=== PATIENT | male | born 1950 | race Caucasian/White ===

== ENCOUNTER 2021-02-13 21:26 | Emergency (ER) | payer MEDICARE ==
[~2021-02-13 21:26] MED LIST: ACETAMINOPHEN325 MG PO; ASPIRIN EC81 MG PO; DULCOLAX10 MG PR; LEVOFLOXAC750 MG/150 IV; LIDOCAINE 5% P1 EACH TOP; LIPITOR20 MG PO; MELATONIN5 M2 PO; MIRALAX17 GM PO; MORPHINE 110 MG/0.5 PO; PAXIL10 MG PO; PROTONIX40 MG PO; SENNA PLUS 8.61 EACH PO; SEROQUEL 25MG T25 MG PO; SPIRIVA RESPIMAT4 G1 PO; TYLENOL650 MG PR; VENTOLIN (2.5 MG/3 M INH; ZYVOX RTU600 MG/300 IV
[2021-02-13 22:21] LABS: BASOPHIL 0.2 % (0-2); EOSINOPHIL 0.1 % (0-7); HCT 32.1 % (42.0-52.0); HGB 10.6 g/dl (13.2-18.0); MCH 30.8 pg (25.0-31.0); MONOCYTE 11.7 % (0-12); MPV 9.9 fL (6.0-9.5); NEUTROPHIL 80.4 % (41-80); NRBC 0; PLT 288 K/uL (150-400); RBC 3.44 M/uL (4.70-6.00); RDW 13.1 % (11.5-14.0); WBC 11.1 K/uL (4.0-10.5)
[2021-02-13 22:22] LABS: MCV 93.3 fL (78.0-100.0)
[2021-02-13 22:32] LABS: ALBUMIN 2.9 g/dL (3.4-5.0); BILIRUBIN - TOTAL 0.5 mg/dL (0.2-1.0); BUN/CREAT RATIO (CALC) 24.1 RATIO; CREATININE 0.87 mg/dL (0.67-1.17); GLOBULIN (CALCULATION) 3.2 g/dL; POTASSIUM 3.8 mmol/L (3.5-5.1); TOTAL PROTEIN 6.1 g/dL (6.4-8.2)
== END 2021-02-13 23:50 | disposition home or self-care (01) ==
LOC: FER 21:26
PROVIDERS: Emergency Medicine
DX: S01.81XA Laceration without foreign body of other part of head, initial encounter (principal); F03.90 Unspecified dementia, unspecified severity, without behavioral disturbance, psychotic disturbance, mood disturbance, and anxiety; I69.991 Dysphagia following unspecified cerebrovascular disease; R13.10 Dysphagia, unspecified; Z23 Encounter for immunization; W19.XXXA Unspecified fall, initial encounter; Y92.128 Other place in nursing home as the place of occurrence of the external cause
CPT/HCPCS: 36415; 70450; 71045; 72125; 80053; 85025; 90471; 90715

== ENCOUNTER 2021-02-28 15:00 | Emergency (ER) | payer MEDICARE ==
[2021-02-28 17:46] LABS: BASOPHIL 0.9 % (0-2); BILIRUBIN NEGATIVE (NEGATIVE); BLOOD NEGATIVE Ery/uL (NEGATIVE); CLARITY CLEAR (CLEAR); COLOR YELLOW (YELLOW); EOSINOPHIL 0.2 % (0-7); GLUCOSE (U) NORMAL (NORMAL); HCT 38.5 % (42.0-52.0); HGB 12.1 g/dl (13.2-18.0); LEUKOCYTES NEGATIVE Leu/uL (NEGATIVE); LYMPHOCYTE 5.2 % (15-48); MCH 30.6 pg (25.0-31.0); MCHC 31.4 g/dL (32.0-36.0); MCV 97.2 fL (78.0-100.0); MONOCYTE 3.6 % (0-12); MPV 10.7 fL (6.0-9.5); NITRITE POSITIVE (NEGATIVE); NRBC 0; PLT 396 K/uL (150-400); PROTEIN 1+ mg/dL (NEGATIVE); RBC 3.96 M/uL (4.70-6.00); RDW 13.9 % (11.5-14.0); SPECIFIC GRAVITY >=1.030 (1.001-1.030); WBC 4.5 K/uL (4.0-10.5); pH 5.5 (5.0-9.0)
[2021-02-28 17:48] LABS: NEUTROPHIL 89.7 % (41-80)
[2021-02-28 17:52] LABS: BACTERIA 3+
[2021-02-28 18:03] LABS: PRO-BNP 444 pg/mL (<125)
[2021-02-28 18:05] LABS: ALBUMIN 3.1 g/dL (3.4-5.0); BILIRUBIN - TOTAL 0.5 mg/dL (0.2-1.0); GLOBULIN (CALCULATION) 4.2 g/dL; POTASSIUM 4.7 mmol/L (3.5-5.1); TOTAL PROTEIN 7.3 g/dL (6.4-8.2)
[2021-02-28 18:12] LABS: LACTIC ACID 4.4 mmol/L (0.4-1.9)
[2021-03-01 02:37] LABS: BASOPHIL 0.5 % (0-2); EOSINOPHIL 0 % (0-7); HCT 31.7 % (42.0-52.0); LYMPHOCYTE 1.5 % (15-48); MCH 30.6 pg (25.0-31.0); MCHC 31.5 g/dL (32.0-36.0); MCV 96.9 fL (78.0-100.0); MONOCYTE 2.6 % (0-12); MPV 9.7 fL (6.0-9.5); NRBC 0; PLT 268 K/uL (150-400); RBC 3.27 M/uL (4.70-6.00); RDW 14.1 % (11.5-14.0); WBC 6.1 K/uL (4.0-10.5)
[2021-03-01 02:40] LABS: NEUTROPHIL 94.6 % (41-80)
[2021-03-01] MEDS ORDERED: XARELTO15 MG PO (09:20)
[2021-03-01] MEDS ORDERED: LEVAQUIN500 MG PO (09:20)
--- NOTE | 2021-03-01 11:16 | NUR ---
ASKED BY [employer]ER, KEON Bhatia, TO GO TO ED TO SPEAK WITH FAMILY IF THEY WANT PT TO GO BACK TO [facility] COMFORT CARE OR W/TREATMENT. SPOKE WITH NURSE PETER Pantoja SHE STATED THAT THE OPTIONS ARE TO RETURN TO [facility] WITH IV ABX AND BLOOD THINNER OR RETURN WITH COMFORT CARE. SPOKE WITH SISTER, ANGEL CAZARES, BY PHONE. SHE IS PT SISTER AND NEXT LIVING RELATIVE. SHE REQUESED THAT PT. BE RETURNED BACK TO [facility] WITH ABX AND BLOOD THINNER. HAD SISTER SPEAK WITH NURSE, PETER Pantoja TO TELL HER WHAT SHE WANTED WELL. SPOKE W/ CANDE AT [facility], PT. MAY RETURN WITH IV ABX LONG PT HAS A PICC LINE. ADVISED NURSE PETER OF THE NEED FOR A PICC LINE. SHE WILL GET ORDER FROM DR. MOLINA FOR PICC AND ADVISE THE PICC TEAM. ADVISED PETER Pantoja TO GIVE REPORT TO [facility] WHEN READY AND HE MAY RETURN BACK TO [facility]. ADVISED SY HERBERT THAT PT. WILL BE RETURNING BACK TO [facility] WHEN HE GETS THE PICC LINE.
== END 2021-03-01 11:40 | disposition home or self-care (01) ==
LOC: FER 15:00
PROVIDERS: Emergency Medicine Emergency Medical Services; Internal Medicine
DX: T79.0XXA Air embolism (traumatic), initial encounter (principal); S01.81XA Laceration without foreign body of other part of head, initial encounter; A41.9 Sepsis, unspecified organism; J18.9 Pneumonia, unspecified organism; R00.0 Tachycardia, unspecified; J44.9 Chronic obstructive pulmonary disease, unspecified; Z86.73 Personal history of transient ischemic attack (TIA), and cerebral infarction without residual deficits; Z20.822 Contact with and (suspected) exposure to COVID-19; W19.XXXA Unspecified fall, initial encounter; Y92.129 Unspecified place in nursing home as the place of occurrence of the external cause
CPT/HCPCS: 36415; 36600; 70450; 71045; 71275; 72125; 80053; 81001; 82803; 83605; 83880; 84145; 84484; 85025; 85379; 85730; 87040; 93005; 94664; 96365; 96366; 96367; 96368; J0692; J0696; J1644; J1956; J3370; J7030; J7050; Q9967; U0002